=== PATIENT | male | born 1985 | race African-American/Black ===

== ENCOUNTER 2016-06-22 13:57 | Emergency (ER) ==
--- NOTE | 2016-06-22 14:34 | Diag Imaging Result Document ---
PROCEDURE NAME: CHEST-2 VIEWS - 06/22/2016 FRONTAL AND LATERAL CHEST, TWO VIEWS: COMPARISON: No comparison films. FINDINGS: The lungs are well expanded. The heart is not enlarged. The vessels are not distended. There are no infiltrates. No pleural effusions. IMPRESSION: No pneumonia.
--- NOTE | 2016-06-22 14:46 | PROVIDER DOCUMENTATION ---
HPI-EENT General - General Chief Complaint: Sore Throat Stated Complaint: SORE THROAT Time Seen by Provider: 06/22/16 14:07 Source: patient - History of Present Illness-EENT General Nature of Presenting Problem: Pt is a 30 yom that presents to er with cc of sorethroat x 1 week reports seen pcp on sunday diagnosed with URI reports productive yellow cough. Denies n,v,f. EENT Location: reports: throat Quality of Pain: reports: aching Onset/Duration: reports: 1 week ago Timing: reports: still present Prearrival Treatment: Initiated prescription meds Locality of [place]urance: Home Similar Symptoms Previously?: Yes Recently seen or treated by another doctor?: Yes Review of Systems - Adult - REVIEW OF SYSTEMS - ADULT Constitutional: denies: chills, fever, fatique Eyes: reports: no symptoms reported Ears, Nose, Mouth & Throat: reports: throat pain. denies: ear pain, sinus problem Cardiovascular: denies: chest pain, irregular heart rate, orthopnea Respiratory: reports: cough. denies: excessive sputum production, hemoptysis, wheezing Gastrointestinal: denies: abdominal pain, diarrhea, nausea, vomiting Genitourinary: reports: no symptoms reported Musculoskeletal: reports: no symptoms reported Integumentary: reports: no symptoms reported Neurological: reports: no symptoms reported Psychiatric: reports: no symptoms reported Endocrine: reports: no symptoms reported Hematologic/Lymphatic: reports: no symptoms reported Allergic/Immunologic: reports: no symptoms reported All Other Systems: Reviewed and Negative Past History - Adult - PAST MEDICAL HISTORY-ADULT Review of Records: reports: Nursing Assessment Review Major Childhood Illnesses: reports: denies history Cardiovascular: reports: denies history - IMMUNIZATION STATUS Childhood Immunizations: See Nurse Assessment Flu Vaccine: See Nurse Assessment - FAMILY HISTORY Family History: reviewed, not pertinent - SOCIAL HISTORY Smoking: denies Substance Use: none/never Physical Exam- EENT - Physical Exam EENT Initial Vital Signs Reviewed: Yes General Appearance: appears well, alert, no apparent distress Eye Exam: bilateral eye: normal inspection, PERRL, EOMI Nasal Exam: normal inspection Throat Exam: pharynx swelling, tonsillar swelling Neck: full range of motion, lymphadenopathy, tender lateral Respiratory: chest non-tender, lungs clear, normal breath sounds, no pleuratic chest pain, no respiratory distress Cardiovascular: regular rate, rhythm, no edema, no gallop, no JVD, no murmur Abdominal Exam: normal bowel sounds, non tender, soft, no organomegaly, no pulsatile mass Extremity: normal range of motion, non-tender Integumentary: normal color, normal turgor, warm/dry Neurologic: grossly normal Psych/Mental Status: normal mood/affect, normal thought content, normal thought process, oriented x 3 Progress - PLAN OF CARE/RESULTS Progress/Plan/Lab Results: Orders Category Date Time Status CHEST-2 VIEWS [RAD] Stat Exams 06/22/16 14:08 Draft CBC WITH DIFF [HEME] Stat Lab 06/22/16 14:[address] Stat Lab 06/22/16 14:07 Completed Vital Signs - 24 hr 06/22/16 14:00 Temperature 99.5 F Pulse Rate 90 Respiratory 20 Rate Blood Pressure 130/88 O2 Sat by Pulse 98 Oximetry Laboratory Tests 06/22/16 14:07 Group A Strep Rapid NEGATIVE Laboratory Tests 06/22/16 06/22/16 06/22/16 14:07 15:05 15:05 WBC 13.03 H RBC 4.98 Hgb 15.2 Hct 42.4 MCV 85.1 MCH 30.5 MCHC 35.8 RDW Std Deviation 12.7 Plt Count 400 MPV 9.2 Immature Gran % (Auto) 0.5 Neut % (Auto) 68.0 Lymph % (Auto) 16.4 L [place] % (Auto) 11.1 H Eos % (Auto) 2.5 Baso % (Auto) 1.5 H Immature Gran # (Auto) 0.07 H Neut # (Auto) 8.86 H Lymph # (Auto) 2.14 [place] # (Auto) 1.45 H Eos # (Auto) 0.32 Baso # (Auto) 0.19 Segmented Neutrophils 76 H Lymphocytes 14 L Monocytes 6 Eosinophils 4 Monoscreen NEGATIVE Group A Strep Rapid NEGATIVE Ct of neck will be done for possible abscess vs lymphadenopathy ENT [address] 1700 due to abscess. Pt is treated with IV antibiotics and is to follow up with on Sunday if symptoms worsen he is to Return to [facility] or go to [place]. - XRAY 1 XRAY: Bilateral XRAY Study: Chest Impression: Normal XRAY Interpretation: no pna - CT/MRI 1 CT Study: Neck Impression: Abnormal ([id number] abscess at or just below the floor of the mouth below the base of the tongue near anterior margin of the hypopharanx on the left. edema extends posteriorly to obliterate komal pyriform sinus. scattered mildly prominent nodes.) - CONSULTS/PCP/HOSPITALIST Notification #1 *Consult/PCP/Hospitalist*: . Time Discussed: 17:09 (Give round of IV antibiotics follow up with on Sunday if symptoms get worse go to [facility] or [place].) Departure - Departure Time of Disposition Order: 15:51 DIAGNOSIS: Submandibular abscess Disposition: HOME 01 Certified Medical Emergency: Emergent Condition: Stable Additional Instructions: If symptoms get worse like stiffening of the jaw or neck, unable to swallow or shortness of breathe Report immediately to [facility] or go to [place]. If not follow up with on Sunday. ED Follow Up Instructions: You have been treated by a care provider in the Emergency Department. These instructions are being provided to you so you can have an understanding of how to care for yourself upon discharge. Upon discharge from the Emergency Department, you are responsible for making arrangements for follow-up care by a physician of your choice. Take all prescribed medications as directed. Return to the Emergency Department immediately for any new or worsening symptoms. You may call the Physician Referral phone number at [phone] to obtain a list of Physicians who are taking new patients. Referrals: Randy Armstrong MD [Primary Care Provider] - David Hancock MD [STAFF PHYSICIAN] - Attestation - Scribe Verification/Attestation Scribe:: Ye Maher Acting as Scribe for:: Matthieu Paredes Scribe documention review:: This chart was documented by a scribe and accurately reflects the service the provider performed and the decisions made by the provider.
[2016-06-22] MEDS ORDERED: ROCEPHIN IM ONE (14:54)
[2016-06-22] MEDS ORDERED: DECADRON IM ONE (14:54)
[2016-06-22] MEDS ORDERED: XYLOCAINE-MPF 1% INJ ONE (14:54)
[2016-06-22 15:32] LABS: BASO% 1.5 % (0.0-0.8); EOS# 0.32 X1000 (0.0-0.7); EOS% 2.5 % (0.0-10.0); HEMATOCRIT 42.4 % (42.0-52.0); HEMOGLOBIN 15.2 g/dL (14.0-18.0); IMM GRAN# 0.07 X1000 (0.0-0.04); IMM GRAN% 0.5 % (0.0-0.5); LYMPH# 2.14 X1000 (1.2-3.4); LYMPH% 16.4 % (20.5-51.1); MANUAL DIFF NEEDED? YES; MCH 30.5 PG (27-31); MCHC 35.8 g/dL (33-37); MCV 85.1 FL (81-99); MONO# 1.45 X1000 (0.11-0.59); MONO% 11.1 % (1.7-9.3); MPV 9.2 FL (7.4-10.4); PLT 400 X1000 (130-400); RBC 4.98 XMIL (4.7-6.1)
[2016-06-22 15:46] LABS: EOS 4 % (1-10); LYMPHS 14 % (21-51); MONO 6 % (1-9)
--- NOTE | 2016-06-22 17:12 | Diag Imaging Result Document ---
PROCEDURE NAME: NECK W/CONTRAST - 06/22/2016 CT NECK WITH INTRAVENOUS CONTRAST: FINDINGS: No sinus opacification. No air-fluid levels. The parotid and submandibular glands are symmetrical. Normal larynx and thyroid. There is a small abscess measuring approximately 5 x 7 x 12 mm on the left located just at the floor or just below the floor of the mouth below the base of the tongue near the anterior margin of the hypopharynx. Edema extends posteriorly to obliterate the piriform sinus. There are mildly prominent lymph nodes scattered bilaterally within the neck. No precervical soft tissue swelling. IMPRESSION: Small abscess at or just below the floor of the mouth beneath the base of the tongue as described above. A preliminary report was given at 4:43 p.m.
[2016-06-22] MEDS ORDERED: ZOFRAN IV ONE (17:14)
[2016-06-22] MEDS ORDERED: CLINDAMYCIN IV ONE (17:14)
[2016-06-22] MEDS ORDERED: DILAUDID IV ONE (17:14)
[2016-06-22] MEDS ORDERED: NS 1,000 ML IV ONE (17:14)
[2016-06-22 17:31] VITALS: BP 125/93
[2016-06-22] MEDS ORDERED: CLINDAMYCIN 900 MG/NS 50 ML IV ONE (17:42)
== END 2016-06-22 18:38 | disposition home or self-care (01) ==
LOC: P.ED 13:57
DX: K12.2 Cellulitis and abscess of mouth (principal); R05 Cough; J02.9 Acute pharyngitis, unspecified; R59.1 Generalized enlarged lymph nodes
CPT/HCPCS: 36415; 70491; 71020; 85025; 86308; 87081; 87430; 96365; 96372; 96375; J0696; J1170; J2405; J7030; Q9967; S0077